=== PATIENT | female | born 1940 | race African-American/Black ===

== ENCOUNTER 2016-05-28 11:45 | Inpatient (IN) | payer OTHER ==
[~2016-05-28] VITALS: Ht 167.6 cm; Wt 80.1 kg
[2016-05-28] MEDS ORDERED: ONDANSETRON 4 MG INJ IV STA (15:39)
[2016-05-28] MEDS ORDERED: VANCOMYCIN 1 GM (PMX) 250 ML IVPB STA (15:39)
[2016-05-28] MEDS ORDERED: AZTREONAM 1 GM/NS (PMX) 50 ML IVPB STA (15:39)
[2016-05-28] MEDS ORDERED: SODIUM CHLORIDE 0.9% 1L BAG IV* STA (15:39)
[2016-05-28] MEDS ORDERED: morphine 2 MG INJ IV ONE (16:00)
--- NOTE | 2016-05-28 16:04 | RADRPT ---
PROCEDURE: XR Chest. CLINICAL INDICATION: Cough. Sepsis. Dehydration. TECHNIQUE: Single frontal view. COMPARISON: None. FINDINGS: The lungs are clear. The heart is mildly enlarged. There is no pleural effusion. There is no pneumothorax. IMPRESSION: 1. Mild cardiomegaly. 2. Clear lungs. RPTAT: QQ .Jose G Barraza MD, MD Date Time Electronically viewed and signed by .Jose G Barraza MD, MD on 05/28/2016 16:04 .R/
[2016-05-28 16:25] LABS: HEMATOCRIT 32.8 % (37.0-47.0); HEMOGLOBIN 10.8 g/dl (12.0-16.0); MEAN CORPUSCULAR HEMOGLOBIN 24.5 pg (29.0-33.0); MEAN CORPUSCULAR HGB CONC 32.9 g/dl (32.0-37.0); MEAN CORPUSCULAR VOLUME 74.5 fl (82.0-101.0); MEAN PLATELET VOLUME 9.5 fl (7.4-10.4); PLATELET COUNT 135 10^3/UL (140-440); RED BLOOD COUNT 4.41 10^6/ul (4.20-5.40); RED CELL DISTRIBUTION WIDTH 15.6 % (11.5-14.5)
[2016-05-28] MEDS ORDERED: PRED1TAB2 PO (16:27)
[2016-05-28] MEDS ORDERED: METO-429 PO (16:27)
[2016-05-28] MEDS ORDERED: AMLO1CAP8 PO (16:28)
[2016-05-28] MEDS ORDERED: HYDR12.58 PO (16:29)
[2016-05-28 16:34] LABS: CONDITION 1; INR 0.99; LH ANALYZER COMMENTS 1; PROTIME 13.1 Sec (12.2-14.2)
[2016-05-28 16:35] LABS: PARTIAL THROMBOPLASTIN TIME 24.7 Sec (25.0-35.0)
[2016-05-28 16:37] LABS: ALBUMIN 4.7 g/dl (3.3-4.9)
[2016-05-28 16:38] LABS: CHLORIDE 101 mmol/L (97-110); POTASSIUM 3.6 mmol/L (3.5-5.1); SODIUM 144 mmol/L (135-144)
[2016-05-28 16:40] LABS: ANION GAP 23 (8-16); ASPARTATE AMINO TRANSFERASE 54 IU/L (15-46); BILIRUBIN,INDIRECT 0.4 mg/dl (0-1.1); BILIRUBIN,TOTAL 0.4 mg/dl (0.2-1.3); CARBON DIOXIDE 24 mmol/L (21-31)
[2016-05-28 16:41] LABS: ALANINE AMINOTRANSFERASE 34 IU/L (13-69); ALKALINE PHOSPHATASE 56 IU/L (42-121); BLOOD UREA NITROGEN 28 mg/dl (7-20); CALCIUM 9.8 mg/dl (8.4-10.2); GLUCOSE 135 mg/dl (70-220); TOTAL PROTEIN 8.3 g/dl (6.1-8.1)
[2016-05-28 17:00] LABS: TROPONIN-I < 0.010 ng/ml (0.00-0.12)
[2016-05-28] MEDS ORDERED: SOD CHLORIDE 0.9% 1,000 ML IV SCH (17:54)
[2016-05-28] MEDS ORDERED: DOCUSATE SODIUM 100 MG CAP PO PRN (18:00)
[2016-05-28] MEDS ORDERED: LORAZEPAM 2 MG INJ IV PRN (18:00)
[2016-05-28] MEDS ORDERED: ALBUTEROL/IPRATROPIUM (NEB) 3 ML AMP HHN PRN (18:00)
[2016-05-28] MEDS ORDERED: NACL 0.9% 3 ML SYG IV SCH (18:00)
[2016-05-28] MEDS ORDERED: morphine 2 MG INJ IV PRN (18:00)
[2016-05-28] MEDS ORDERED: NA PHOSPHATE/BIPHOS 133 ML ENEMA PR PRN (18:00)
[2016-05-28] MEDS ORDERED: MAGNESIUM HYDROXIDE 30ML CUP PO PRN (18:00)
[2016-05-28] MEDS ORDERED: ONDANSETRON 4 MG INJ IV PRN ×2 (18:00)
[2016-05-28] MEDS ORDERED: HYDROCODONE/APAP (5/325) TAB PO PRN (18:00)
[2016-05-28] MEDS ORDERED: hydrALAzine 20 MG INJ IV PRN (18:00)
[2016-05-28] MEDS ORDERED: NITROGLYCERIN (SL) 0.4 MG TAB SL PRN (18:00)
[2016-05-28] MEDS ORDERED: ACETAMINOPHEN 325 MG TAB PO PRN ×2 (18:00)
[2016-05-28 18:10] LABS: LYMPHOCYTES # 0.5 10^3/ul (0.8-2.9); MONOCYTE # 0.5 10^3/ul (0.3-0.9); NEUTROPHIL # 7.5 10^3/ul (1.6-7.5)
--- NOTE | 2016-05-28 18:22 | ERA ---
ER Documentation Chief Complaint Date/Time DATE: 05/28/16 TIME: 18:19 Chief Complaint dizziness, cold symptoms x 05/24/16 HPI Patient is a 75-year-old female with borderline diabetes and hypertension who feels sick. She says "I thought I had the flu". She then started with diarrhea today. Her symptoms started on May 24. She has a sore throat. She denies cough. She denies urinary symptoms but says that she has had urinary issues in the past. She has had a fever 2 days ago. She was sent to the ER by her doctor that she saw in the office today. He said that she was dehydrated and that she would need fluids and admission. Upon review of old medical records this is the patient's first visit to the emergency department. ROS All systems reviewed and are negative except as per history of present illness. Medications Home Meds Reported Medications Hydrochlorothiazide* (Hydrochlorothiazide*) 12.5 Mg Tablet, 12.5 MG PO DAILY, # 30 TAB 05/28/16 Amlodipine Besylate/Benazepril (Amlodipine-Benazepril 5-10 mg) 1 Each Capsule, 1 EACH PO DAILY, CAP 05/28/16 Prednisone* (Prednisone*) 1 Mg Tablet, 3 MG PO DAILY, TAB 05/28/16 Metoprolol Tartrate* (Lopressor*) 50 Mg Tab, 50 MG PO DAILY, #60 TAB 05/28/16 Allergies Allergies: Coded Allergies: Penicillins (Verified Allergy, Unknown, RASH, 05/28/16) Sulfa (Sulfonamide Antibiotics) (Verified Allergy, Unknown, RASH, 05/28/16) erythromycin base (Verified Allergy, Unknown, RASH, 05/28/16) PMhx/Soc Medical and Surgical Hx: Unable to obtain Hx Alcohol Use: Yes Hx Substance Use: No Hx Tobacco Use: No Smoking Status: Never smoker FmHx Family History: diabetes Physical Exam Vitals Vital Signs Date Time Temp Pulse Resp B/P Pulse Ox O2 Delivery O2 Flow Rate FiO2 05/28/16 18:23 97.7 68 20 111/49 100 05/28/16 11:55 97.7 90 20 93/50 100 Physical Exam Const: Mild distress Head: Atraumatic Eyes: Normal Conjunctiva ENT: Normal External Ears, Nose and Mouth. Neck: Full range of motion..~ No meningismus. Resp: Clear to auscultation bilaterally Cardio: Regular rate and rhythm, no murmurs Abd: Soft, diffuse tenderness to palpation without rebound or guarding Skin: No petechiae or rashes Back: No midline or flank tenderness Ext: No cyanosis, or edema Neur: Awake and alert Psych: Normal Mood and Affect Result Diagram: 05/28/16 1611 05/28/16 1611 Results 24 hrs Laboratory Tests Test 05/28/16 16:11 05/28/16 17:39 Activated Partial Thromboplast Time 24.7Sec Alanine Aminotransferase (ALT/SGPT) 34IU/L Albumin 4.7g/dl Albumin/Globulin Ratio 1.30 Alkaline Phosphatase 56IU/L Anion Gap 23 Aspartate Amino Transf (AST/SGOT) 54IU/L Band Neutrophils % 3.0% Blood Morphology Comment Blood Urea Nitrogen 28mg/dl Calcium Level 9.8mg/dl Carbon Dioxide Level 24mmol/L Chloride Level 101mmol/L Creatinine 2.90mg/dl Direct Bilirubin 0.00mg/dl Globulin 3.60g/dl Glucose Level 135mg/dl Hematocrit 32.8% Hemoglobin 10.8g/dl INR International Normalized Ratio 0.99 Indirect Bilirubin 0.4mg/dl Lactic Acid Level 4.0mmol/L 2.6mmol/L Lymphocytes # 0.510^3/ul Lymphocytes % 5.0% Mean Corpuscular Hemoglobin 24.5pg Mean Corpuscular Hemoglobin Concent 32.9g/dl Mean Corpuscular Volume 74.5fl Mean Platelet Volume 9.5fl Monocytes # 0.510^3/ul Monocytes % 6.0% Neutrophils # 7.510^3/ul Neutrophils % 83.0% Platelet Count 11695^3/UL Potassium Level 3.6mmol/L Prothrombin Time 13.1Sec Prothrombin Time Ratio 1.0 Reactive Lymphocytes % 3.0% Red Blood Count 4.4110^6/ul Red Cell Distribution Width 15.6% Sodium Level 144mmol/L Total Bilirubin 0.4mg/dl Total Protein 8.3g/dl Troponin I < 0.010ng/ml White Blood Count 9.010^3/ul Current Medications Medications (Trade) Dose Ordered Sig/Miguel Route PRN Reason Start Time Stop Time Status Last Admin Dose Admin Sodium Chloride 2390 ml 2,390 ml BOLUS OVER 2 HOURS STAT IV* 05/28/16 15:39 05/28/16 15:41 DC 05/28/16 16:22 Vancomycin HCl 250 ml @ 125 mls/hr ONCE STAT IVPB 05/28/16 15:39 05/28/16 17:38 DC 05/28/16 17:59 Aztreonam (Azactam 1gm/NS (Pmx)) 50 ml @ 100 mls/hr ONCE STAT IVPB 05/28/16 15:39 05/28/16 16:08 DC 05/28/16 17:28 Morphine Sulfate (morphine) 2 mg ONCE ONCE IV 05/28/16 16:00 05/28/16 16:01 DC 05/28/16 16:22 Ondansetron HCl (Zofran Inj) 4 mg ONCE STAT IV 05/28/16 15:39 05/28/16 15:41 DC 05/28/16 16:22 Ondansetron HCl (Zofran Inj) 4 mg BRIDGE ORDER PRN IV NAUSEA AND/OR VOMITING 05/28/16 18:00 05/28/16 18:20 DC Acetaminophen (Tylenol Tab) 650 mg ER BRIDGE PRN PO MILD PAIN/FEVER 05/28/16 18:00 05/28/16 18:20 DC IV Flush (NS 3 ml) 3 ml PER PROTOCOL IV 05/28/16 18:00 Ondansetron HCl (Zofran Inj) 4 mg Q6H PRN IV NAUSEA AND/OR VOMITING 05/28/16 18:00 Acetaminophen (Tylenol Tab) 650 mg Q6H PRN PO PAIN LEVEL 1-3 OR FEVER 05/28/16 18:00 Acetaminophen/ Hydrocodone Bitart ([place] (5/325)) 1 tab Q6H PRN PO MODERATE PAIN LEVEL 4-6 05/28/16 18:00 Morphine Sulfate (morphine) 2 mg Q4H PRN IV SEVERE PAIN LEVEL 7-10 05/28/16 18:00 Docusate Sodium (Colace) 100 mg Q12H PRN PO CONSTIPATION 05/28/16 18:00 Magnesium Hydroxide (Milk Of Mag) 30 ml DAILY PRN PO CONSTIPATION 05/28/16 18:00 Sodium Biphosphate/ Sodium Phosphate (Fleet Enema) 133 ml DAILY PRN [place] CONSTIPATION 05/28/16 18:00 Lorazepam 0.5 mg 0.5 mg Q6H PRN IV ANXIETY 05/28/16 18:00 Sodium Chloride (NS) 1,000 ml @ 100 mls/hr Q10H IV 05/28/16 17:54 Albuterol/ Ipratropium (Duoneb) 3 ml Q4H RESP THERAPY PRN HHN SHORTNESS OF BREATH 05/28/16 18:00 Hydralazine HCl (Apresoline) 10 mg Q6H PRN IV ELEVATED BLOOD PRESSURE 05/28/16 18:00 Nitroglycerin (Nitroglycerin (Sl Tab) 0.4 Mg) 1 tab Q5M PRN SL ANGINA 05/28/16 18:00 Prednisone (Prednisone) 3 mg DAILY PO 05/29/16 09:00 Procedures/MDM EKG read by me: Rate/Rhythm: Regular rate and rhythm at a rate of 74 Intervals: Normal Impression: No evidence of ischemia or arrhythmia Chest x-ray shows no pneumonia per radiology. Admit MDM: Patient's infectious symptoms have not stabilized and the patient is at risk of rapid decompensation. The patient will be admitted for careful hydration, antibiotic therapy, and infectious source control. Severe Sepsis criteria: Infectious source: Unclear at this time End organ damage indicated by: Lactate greater than 2, creatinine greater than 2 Sepsis Management: Time of recognition of sepsis: 16:11 Within 3 hours of recognition: Blood cultures x 2 before broad-spectrum antibiotics: Yes 30 ml/kg NS bolus Completed Initial lactate 4.0 Repeat lactate 2.6 Time of recognition of septic shock: 16:11 Septic Shock Assessment: Any lactic acid > 4.0 yes Persistent hypotension (SBP < 90 or 40 mmHg drop, MAP < 65) despite 30 mL/kg IV fluid bolus No Volume Re-assessment for Septic Shock (post 30 ml/kg bolus): Temp 97.7, BP 111/49, HR 68, RR 20, Pox 100% Heart Regular rate & rhythm Lungs No crackles Skin Warm & dry Cap Refill Less than 2 seconds Peripheral pulses Radially present Persistent Hypotension Treatment: Comfort care No Central line Not Required Vasopressor started Not required I considered further perfusion assessment with CVP measurement, SCVO2, bedside ultrasound volume assessment, passive leg raise, trial of further fluid bolus. And proceeded with 30 ml/kg fluid bolus of NSS, broad spectrum antibiotics, and admission. Accepting Care Team Current data and ongoing care discussed. Admitting Physician: Dr. Cash as the patient has never been here before and the primary doctor does not have admitting privileges Calendering Machine Operator(s): None Outstanding Data: Culture results Critical Care: Critical care time 35 minutes excluding all billable procedures Emergent fluid management while maintaining close respiratory support. Provision of immediate and broad-spectrum antibiotic therapy. Simultaneous assessment for possible sources in order to direct targeted therapy. Consideration for invasive and chemical support to prevent cardiopulmonary collapse. Departure Diagnosis: Primary Impression: Septic shock Additional Impressions: Dizziness Anemia Qualified Code: D64.9 - Anemia, unspecified type Renal failure Condition: ODESSA Bocanegra MD May 28, 2016 18:22
[2016-05-28 21:15] VITALS: TEMP 98.4
[2016-05-28 21:30] VITALS: Ht 167.6 cm; Wt 80.1 kg
[2016-05-28 21:33] VITALS: BP 128/60; RESP 20
[2016-05-29] MEDS: 1/2 NS + KCL 20 MEQ 1,000 ML IV SCH ×2 (01:15→08:49)
[2016-05-29 06:00] LABS: IRON 51 ug/dl (35-150)
[2016-05-29 06:02] LABS: ADD UMIC YES; URINE BILIRUBIN (Dip) NEGATIVE (NEGATIVE); URINE BLOOD (Dip) 2+ (NEGATIVE); URINE COLOR LT. YELLOW (YELLOW); URINE GLUCOSE (Dip) NEGATIVE (NEGATIVE); URINE KETONES (Dip) NEGATIVE (NEGATIVE); URINE LEUKOCYTE ESTERASE (Dip) 1+ (NEGATIVE); URINE NITRITE (Dip) NEGATIVE (NEGATIVE); URINE TOTAL PROTEIN (Dip) NEGATIVE (NEGATIVE); URINE UROBILINOGEN (Dip) 0.2 E.U./dL (0.1-1.0)
[2016-05-29 06:03] LABS: CHOL/HDL RATIO 4.1 RATIO
[2016-05-29 06:10] LABS: TOTAL IRON BINDING CAPACITY 201 ug/dl (241-421)
[2016-05-29 06:13] LABS: HEMATOCRIT 25.4 % (37.0-47.0); HEMOGLOBIN 8.5 g/dl (12.0-16.0); MEAN CORPUSCULAR HEMOGLOBIN 24.8 pg (29.0-33.0); MEAN CORPUSCULAR HGB CONC 33.4 g/dl (32.0-37.0); MEAN CORPUSCULAR VOLUME 74.3 fl (82.0-101.0); MEAN PLATELET VOLUME 9.7 fl (7.4-10.4); PLATELET COUNT 100 10^3/UL (140-440); RED BLOOD COUNT 3.41 10^6/ul (4.20-5.40); RED CELL DISTRIBUTION WIDTH 15.3 % (11.5-14.5); UNCORRECTED WBC 4.8 10^3/ul (4.8-10.8); WHITE BLOOD COUNT 4.8 10^3/ul (4.8-10.8)
[2016-05-29 06:21] LABS: BACTERIA,URINE FEW; MUCUS,URINE OCCASIONAL; SQUAMOUS EPITHELIAL CELL,UR FEW
[2016-05-29 06:31] LABS: CONDITION 1; LH ANALYZER COMMENTS 1
[2016-05-29 06:37] LABS: POTASSIUM 3.9 mmol/L (3.5-5.1)
[2016-05-29 06:40] LABS: CREATININE 2.29 mg/dl (0.44-1.00)
[2016-05-29 06:41] LABS: CALCIUM 8.9 mg/dl (8.4-10.2); MAGNESIUM 2.2 mg/dl (1.7-2.5); PHOSPHORUS 4.6 mg/dl (2.5-4.9)
--- NOTE | 2016-05-29 07:12 | HP ---
DATE OF ADMISSION: 05/28/2016 TIME: 11:15 p.m. CHIEF COMPLAINT: Dehydration. HISTORY OF PRESENT ILLNESS: The patient is a 75-year-old female with a history of fibromyalgia rheu matica and hypertension as well as borderline diabetes. The patient does follow up with a rheumatol ogist and plumber helper for her polymyalgia rheumatica. The patient apparently also has some degree of CKD. The patient was told to come to the ED after being told that she is severely dehydrated. Sh reina does state that she has been feeling sick for the past week. She states that she has intermittent fevers, malaise, some abdominal pain and pain in her throat. She denies any cough. She denies any nausea, vomiting, and states that she had no diarrhea over the past week, but did have diarrhea tod ay. In the ED, the patient's lactic acid was notably elevated. She had no signs of an acute. Infe ction at this time she has no acute complaints and states that she was better. PAST MEDICAL HISTORY: Polymyalgia rheumatica, hypertension, CKD and prediabetes. PAST SURGICAL HISTORY: , possible cholecystectomy. HOME MEDICATIONS: 1. Diltiazem. 2. Metoprolol. 3. Norvasc. 4. Benazepril. 5. Prednisone 3 mg daily. ALLERGIES: 1. PENICILLIN. 2. SULFA. 3. ERYTHROMYCIN. FAMILY HISTORY: Noncontributory. SOCIAL HISTORY: Denies any alcohol, tobacco, or drug abuse. REVIEW OF SYSTEMS: A 12-point review of systems negative except for that as in HPI. PHYSICAL EXAMINATION: VITAL SIGNS: Temperature is 98.4, pulse 68, respiratory rate is 20, blood pressure 120/60, saturati on 99% on room air. GENERAL: No acute distress, alert and oriented. HEENT: Normocephalic, atraumatic. LUNGS: Clear to auscultation. CARDIOVASCULAR: Regular rate and rhythm. ABDOMEN: Nondistended, nontender, soft. EXTREMITIES: No clubbing, cyanosis, or edema. LABORATORIES: White count 7.0, hemoglobin 10.8, MCV 74.5, platelets at 135. Chemistries: Sodium i s 144, potassium is 3.6, creatinine is 2.9, BUN is 28, anion gap is 23. Lactic acid was 4.0, now do wn to 1.6. AST 54, INR 0.99. DIAGNOSTICS: Chest x-ray shows mild cardiomegaly, clear lungs. ASSESSMENT AND PLAN: 1. Severe dehydration with lactic acidosis. This may have been secondary to a viral syndrome. She did have diarrhea today; this is already improving. We will continue with IV fluids. The patient denies any cough; hence there is no indication for Tamiflu or influenza screen, plus her symptoms montoya ve been ongoing for the past week and Tamiflu would not be beneficial. 2. Chronic kidney disease. The patient does have chronic kidney disease and follows up with her n ephrologist. Her baseline creatinine is not known. The patient may have an acute component seconda ry to dehydration. We will treat with IV fluids and monitor. 3. History of polymyalgia rheumatica. Continue home prednisone. 4. Hypertension. Continue home amlodipine and benazepril if BP stabilizes. BP on arrival was low s econdary to dehydration, we will resume BP medications the a.m., if once again BP is stable. 6. Borderline diabetes. We will check A1c. 7. Prophylaxis. SCDs. Dictated By: ANGELO VERA MD BS/KENDRA Conf#: [id number] DID#: [id number]
[2016-05-29 07:31] LABS: THYROID STIMULATING HORMONE 1.64 MIU/L (0.465-4.680)
[2016-05-29 07:49] VITALS: BP 122/68; RESP 18
[2016-05-29] MEDS: predniSONE 1 MG TAB PO SCH (08:29)
[2016-05-29] MEDS: BENAZEPRIL 10 MG TAB PO SCH (08:31)
[2016-05-29] MEDS: AMLODIPINE 5 MG TAB PO SCH (08:31)
[2016-05-29 10:42] LABS: LYMPHOCYTES # 1.5 10^3/ul (0.8-2.9); MONOCYTE # 0.2 10^3/ul (0.3-0.9)
--- NOTE | 2016-05-29 11:53 | PN ---
Date/Time of Note Date/Time of Note DATE: 05/29/16 TIME: 11:49 Assessment/Plan VTE Prophylaxis VTE Prophylaxis Intervention: SCD's Lines/Catheters IV Catheter Type (from [facility]): Peripheral IV Assessment/Plan Chief Complaint/Hosp Course Assessment and plan 1. Severe dehydration with lactic acidosis. This may have been secondary to a viral syndrome. diarrhea already improving. We will continue with IV fluids. The patient denies any cough; hence there is no indication for Tamiflu or influenza screen, plus her symptoms have been ongoing for the past week and Tamiflu would not be beneficial. 2. Acute on chronic kidney disease. Continue IV fluids and monitor. Follow -up renal panel in a.m. 3. History of polymyalgia rheumatica. Continue home prednisone. 4. Hypertension. Continue home amlodipine and benazepril if BP stabilizes. BP on arrival was low secondary to dehydration, we will resume BP medications the a.m., if once again BP is stable. 5. Borderline diabetes. We will check A1c. 6. Anemia, follow-up H/H this afternoon, if hemoglobin is less than 8.0 we will transfuse 1 unit of packed red blood cell, this may be dilutional versus GI bleed, follow-up stool guaiac 7. Hypernatremia, start the patient on D5W, follow-up BMP in a.m. 8. Prophylaxis. SCDs. Problems: Subjective 24 Hr Interval Summary Free Text/Dictation Patient denies of any chest pain or shortness of breath Denies of any abdominal discomfort at this time No nausea vomiting or diarrhea No bowel movement 24 hours Exam/Review of Systems Vital Signs Vitals Vital Signs Date Time Temp Pulse Resp B/P Pulse Ox O2 Delivery O2 Flow Rate FiO2 05/29/16 07:49 98.6 64 18 122/68 98 05/28/16 21:15 Room Air Intake and Output 05/28/16 05/28/16 05/29/16 15:00 23:00 07:00 Intake Total 700 ml Balance 700 ml Exam General: The patient is well-developed, Not in acute distress. HEENT: Atraumatic, normocephalic. The pupils are equal and round . Neck: Supple with full range of motion. Chest: Normal expansion of the thorax during inspiration Lungs: Clear to auscultation bilaterally Heart: Normal S1-S2, Regular rhythm and rate. Abdomen: Soft , nontender, nondistended , bowel sounds are present. Extremities: Normal to inspection, no edema no cyanosis Neurologic: Normal mental status,The patient is awake, alert and oriented . Results Result Diagram: 05/29/16 0442 05/29/16 0442 Results 24 hrs Laboratory Tests Test 05/28/16 16:11 05/28/16 17:39 05/28/16 21:50 05/29/16 00:19 Activated Partial Thromboplast Time 24.7 L Alanine Aminotransferase (ALT/SGPT) 34 Albumin 4.7 Albumin/Globulin Ratio 1.30 Alkaline Phosphatase 56 Anion Gap 23 H Aspartate Amino Transf (AST/SGOT) 54 H Band Neutrophils % 3.0 Blood Morphology Comment Blood Urea Nitrogen 28 H Calcium Level 9.8 Carbon Dioxide Level 24 Chloride Level 101 Creatinine 2.90 H Direct Bilirubin 0.00 Free Thyroxine 1.60 Globulin 3.60 H Glucose Level 135 Hematocrit 32.8 L Hemoglobin 10.8 L INR International Normalized Ratio 0.99 Indirect Bilirubin 0.4 Lactic Acid Level 4.0 H 2.6 H 1.6 0.7 Lymphocytes # 0.5 L Lymphocytes % 5.0 L Mean Corpuscular Hemoglobin 24.5 L Mean Corpuscular Hemoglobin Concent 32.9 Mean Corpuscular Volume 74.5 L Mean Platelet Volume 9.5 Monocytes # 0.5 Monocytes % 6.0 Neutrophils # 7.5 Neutrophils % 83.0 H Platelet Count 135 L Potassium Level 3.6 Prothrombin Time 13.1 Prothrombin Time Ratio 1.0 Reactive Lymphocytes % 3.0 Red Blood Count 4.41 Red Cell Distribution Width 15.6 H Sodium Level 144 Total Bilirubin 0.4 Total Protein 8.3 H Troponin I < 0.010 White Blood Count 9.0 Test 05/29/16 02:45 05/29/16 04:42 Urine Bacteria FEW Urine Bilirubin NEGATIVE Urine Clarity CLEAR Urine Color LT. YELLOW Urine Glucose NEGATIVE Urine Hemoglobin 2+ H Urine Hyaline Casts OCCASIONAL Urine Ketones NEGATIVE Urine Leukocyte Esterase 1+ H Urine Microscopic RBC 10-25 Urine Microscopic WBC 5-10 Urine Mucus OCCASIONAL Urine Nitrite NEGATIVE Urine Specific [place] 1.025 Urine Squamous Epithelial Cells FEW Urine Total Protein NEGATIVE Urine Urobilinogen 0.2 E.U./dL Urine pH 5.5 Anion Gap 21 H Blood Morphology Comment Blood Urea Nitrogen 28 H Calcium Level 8.9 Carbon Dioxide Level 22 Chloride Level 111 H Cholesterol Level 150 Cholesterol/HDL Ratio 4.1 Creatinine 2.29 H Glucose Level 94 # HDL Cholesterol 36 Hematocrit 25.4 #L Hemoglobin 8.5 #L Hemoglobin A1c 5.2 Iron Level 51 LDL Cholesterol, Calculated 85 Lactic Acid Level 1.1 Lymphocytes # 1.5 Lymphocytes % 32.0 Magnesium Level 2.2 Mean Corpuscular Hemoglobin 24.8 L Mean Corpuscular Hemoglobin Concent 33.4 Mean Corpuscular Volume 74.3 L Mean Platelet Volume 9.7 Monocytes # 0.2 L Monocytes % 5.0 Neutrophils # 3.0 Neutrophils % 63.0 Percent Iron Saturation 25 Phosphorus Level 4.6 Platelet Count 100 #L Potassium Level 3.9 Red Blood Count 3.41 #L Red Cell Distribution Width 15.3 H Sodium Level 150 H Thyroid Stimulating Hormone (TSH) 1.640 Total Iron Binding Capacity 201 L Triglycerides Level 145 White Blood Count 4.8 # Medications Medications Current Medications Ondansetron HCl (Zofran Inj) 4 mg Q6H PRN IV NAUSEA AND/OR VOMITING; Start 05/28 at 18:00 Acetaminophen (Tylenol Tab) 650 mg Q6H PRN PO PAIN LEVEL 1-3 OR FEVER; Start at 18:00 Acetaminophen/ Hydrocodone Bitart ([place] (5/325)) 1 tab Q6H PRN PO MODERATE PAIN LEVEL 4-6; Start 05/28/16 at 18:00 Morphine Sulfate (morphine) 2 mg Q4H PRN IV SEVERE PAIN LEVEL 7-10; Start at 18:00 Docusate Sodium (Colace) 100 mg Q12H PRN PO CONSTIPATION; Start 05/28/16 at 18: 00 Magnesium Hydroxide (Milk Of Mag) 30 ml DAILY PRN PO CONSTIPATION; Start at 18:00 Sodium Biphosphate/ Sodium Phosphate (Fleet Enema) 133 ml DAILY PRN [place] CONSTIPATION; Start 05/28/16 at 18:00 Lorazepam (Ativan) 0.5 mg Q6H PRN IV ANXIETY; Start 05/28/16 at 18:00 Hydralazine HCl (Apresoline) 10 mg Q6H PRN IV ELEVATED BLOOD PRESSURE; Start at 18:00 Nitroglycerin (Nitroglycerin (Sl Tab) 0.4 Mg) 1 tab Q5M PRN SL ANGINA; Start at 18:00 Prednisone (Prednisone) 3 mg DAILY PO Last administered on 05/29/16 08:29; Admin Dose 3 MG; Start 05/29/16 at 09:00 Amlodipine Besylate (Norvasc) 5 mg DAILY PO Last administered on 05/29/16 08:31 ; Admin Dose 5 MG; Start 05/29/16 at 09:00 Benazepril HCl 10 mg 10 mg DAILY PO Last administered on 05/29/16 08:31; Admin Dose 10 MG; Start 05/29/16 at 09:00 Potassium Chloride/Dextrose (D5W + KCl 20 Meq) 1,000 ml @ 80 mls/hr [id number] IV ; Start 05/29/16 at 12:00 RYNE DODD MD May 29, 2016 11:53
[2016-05-29] MEDS: D5W + KCL 20 MEQ 1,000 ML IV SCH (12:33)
[2016-05-29 14:22] LABS: HEMATOCRIT 26.9 % (37.0-47.0); HEMOGLOBIN 8.8 g/dl (12.0-16.0)
--- NOTE | 2016-05-29 14:49 | CONS ---
Date/Time of Note Date/Time of Note DATE: 05/29/16 TIME: 14:41 Assessment/Plan Assessment/Plan Chief Complaint/Hosp Course Assessment 1. Severe dehydration with lactic acidosis. Viral syndrome vs gastroenteritis 2. Acute on chronic kidney disease. 3. History of polymyalgia rheumatica. 4. iron deficiency anemia, r/o GIB 5. Borderline diabetes. Recommendations: 1. stool for occult blood, C. diff and culture 2. IVF 3. check iron panel 4. if occult blood positive and hgb drops, will d/w patient re EGD for hemostasis. holding off on colonoscopy for now as pt had colonoscopy 6 month ago. Problems: Consultation Date/Type/Reason Admit Date/Time May 28, 2016 at 17:44 Type of Consultation: GI Hx of Present Illness 75-year-old female with a history of fibromyalgia rheumatica and hypertension as well as borderline diabetes who is admitted for dehydration. The patient does follow up with a recruitment manager and ethylbenzene cracking supervisor for her polymyalgia rheumatica. She has been feeling sick for the past week with intermittent fevers, malaise, some abdominal pain and pain in her throat. No cough. She denies any nausea, vomiting, and states that she had no diarrhea over the past week, but did have diarrhea today. No melena, BRBPR, coffee ground emesis or hematemesis. No abdominal pain, dysuria, or skin rashes. Last colonoscopy 6 months ago which removed colon polyp. Never had EGD. All point ROS administered, pertinent positives and negatives in HPI otherwise negative. Past Medical History Polymyalgia rheumatica, pre-diabetes, h/o colon polyps Medical History: hypertension, renal disease Past Surgical History Past Surgical Hx: endoscopy Family History Significant Family History: no pertinent family hx Social History Alcohol Use: none Smoking Status: Former smoker Drug Use: none Exam/Review of Systems Vital Signs Vitals Vital Signs Date Time Temp Pulse Resp B/P Pulse Ox O2 Delivery O2 Flow Rate FiO2 05/29/16 07:49 98.6 64 18 122/68 98 05/28/16 21:15 Room Air Intake and Output 05/28/16 05/28/16 05/29/16 14:59 22:59 06:59 Intake Total 700 ml Balance 700 ml Exam Constitutional: alert, oriented, well developed Psych: nl mood/affect, no complaints Head: atraumatic, normocephalic Eyes: EOMI, nl conjunctiva, nl lids, nl sclera ENMT: mucosa pink and moist, nl external ears & nose, nl lips & teeth, nl nasal mucosa & septum Neck: non-tender, supple Respiratory: clear to auscultation, normal air movement Cardiovascular: nl pulses, regular rate and rhythm Gastrointestinal: bowel sounds, non-tender, soft Musculoskeletal: nl extremities to inspection, nl gait and stance Neurological: nl mental status, nl speech, nl strength Results Result Diagram: 05/29/16 1340 05/29/16 0442 Results 24 hrs Laboratory Tests Test 05/28/16 16:11 05/28/16 17:39 05/28/16 21:50 05/29/16 00:19 Activated Partial Thromboplast Time 24.7 L Alanine Aminotransferase (ALT/SGPT) 34 Albumin 4.7 Albumin/Globulin Ratio 1.30 Alkaline Phosphatase 56 Anion Gap 23 H Aspartate Amino Transf (AST/SGOT) 54 H Band Neutrophils % 3.0 Blood Morphology Comment Blood Urea Nitrogen 28 H Calcium Level 9.8 Carbon Dioxide Level 24 Chloride Level 101 Creatinine 2.90 H Direct Bilirubin 0.00 Free Thyroxine 1.60 Globulin 3.60 H Glucose Level 135 Hematocrit 32.8 L Hemoglobin 10.8 L INR International Normalized Ratio 0.99 Indirect Bilirubin 0.4 Lactic Acid Level 4.0 H 2.6 H 1.6 0.7 Lymphocytes # 0.5 L Lymphocytes % 5.0 L Mean Corpuscular Hemoglobin 24.5 L Mean Corpuscular Hemoglobin Concent 32.9 Mean Corpuscular Volume 74.5 L Mean Platelet Volume 9.5 Monocytes # 0.5 Monocytes % 6.0 Neutrophils # 7.5 Neutrophils % 83.0 H Platelet Count 135 L Potassium Level 3.6 Prothrombin Time 13.1 Prothrombin Time Ratio 1.0 Reactive Lymphocytes % 3.0 Red Blood Count 4.41 Red Cell Distribution Width 15.6 H Sodium Level 144 Total Bilirubin 0.4 Total Protein 8.3 H Troponin I < 0.010 White Blood Count 9.0 Test 05/29/16 02:45 05/29/16 04:42 05/29/16 13:40 Urine Bacteria FEW Urine Bilirubin NEGATIVE Urine Clarity CLEAR Urine Color LT. YELLOW Urine Glucose NEGATIVE Urine Hemoglobin 2+ H Urine Hyaline Casts OCCASIONAL Urine Ketones NEGATIVE Urine Leukocyte Esterase 1+ H Urine Microscopic RBC 10-25 Urine Microscopic WBC 5-10 Urine Mucus OCCASIONAL Urine Nitrite NEGATIVE Urine Specific [place] 1.025 Urine Squamous Epithelial Cells FEW Urine Total Protein NEGATIVE Urine Urobilinogen 0.2 E.U./dL Urine pH 5.5 Anion Gap 21 H Blood Morphology Comment Blood Urea Nitrogen 28 H Calcium Level 8.9 Carbon Dioxide Level 22 Chloride Level 111 H Cholesterol Level 150 Cholesterol/HDL Ratio 4.1 Creatinine 2.29 H Glucose Level 94 # HDL Cholesterol 36 Hematocrit 25.4 #L 26.9 L Hemoglobin 8.5 #L 8.8 L Hemoglobin A1c 5.2 Iron Level 51 LDL Cholesterol, Calculated 85 Lactic Acid Level 1.1 Lymphocytes # 1.5 Lymphocytes % 32.0 Magnesium Level 2.2 Mean Corpuscular Hemoglobin 24.8 L Mean Corpuscular Hemoglobin Concent 33.4 Mean Corpuscular Volume 74.3 L Mean Platelet Volume 9.7 Monocytes # 0.2 L Monocytes % 5.0 Neutrophils # 3.0 Neutrophils % 63.0 Percent Iron Saturation 25 Phosphorus Level 4.6 Platelet Count 100 #L Potassium Level 3.9 Red Blood Count 3.41 #L Red Cell Distribution Width 15.3 H Sodium Level 150 H Thyroid Stimulating Hormone (TSH) 1.640 Total Iron Binding Capacity 201 L Triglycerides Level 145 White Blood Count 4.8 # Medications Medications Current Medications Ondansetron HCl (Zofran Inj) 4 mg Q6H PRN IV NAUSEA AND/OR VOMITING; Start 05/28 at 18:00 Acetaminophen (Tylenol Tab) 650 mg Q6H PRN PO PAIN LEVEL 1-3 OR FEVER; Start at 18:00 Acetaminophen/ Hydrocodone Bitart ([place] (5/325)) 1 tab Q6H PRN PO MODERATE PAIN LEVEL 4-6; Start 05/28/16 at 18:00 Morphine Sulfate (morphine) 2 mg Q4H PRN IV SEVERE PAIN LEVEL 7-10; Start at 18:00 Docusate Sodium (Colace) 100 mg Q12H PRN PO CONSTIPATION; Start 05/28/16 at 18: 00 Magnesium Hydroxide (Milk Of Mag) 30 ml DAILY PRN PO CONSTIPATION; Start at 18:00 Sodium Biphosphate/ Sodium Phosphate (Fleet Enema) 133 ml DAILY PRN [place] CONSTIPATION; Start 05/28/16 at 18:00 Lorazepam (Ativan) 0.5 mg Q6H PRN IV ANXIETY; Start 05/28/16 at 18:00 Hydralazine HCl (Apresoline) 10 mg Q6H PRN IV ELEVATED BLOOD PRESSURE; Start at 18:00 Nitroglycerin (Nitroglycerin (Sl Tab) 0.4 Mg) 1 tab Q5M PRN SL ANGINA; Start at 18:00 Prednisone (Prednisone) 3 mg DAILY PO Last administered on 05/29/16 08:29; Admin Dose 3 MG; Start 05/29/16 at 09:00 Amlodipine Besylate (Norvasc) 5 mg DAILY PO Last administered on 05/29/16 08:31 ; Admin Dose 5 MG; Start 05/29/16 at 09:00 Benazepril HCl 10 mg 10 mg DAILY PO Last administered on 05/29/16 08:31; Admin Dose 10 MG; Start 05/29/16 at 09:00 Potassium Chloride/Dextrose (D5W + KCl 20 Meq) 1,000 ml @ 80 mls/hr [id number] IV Last administered on 05/29/16 12:33; Admin Dose 80 MLS/HR; Start 05/29/16 at 12 :00 Pantoprazole (Protonix Tab) 40 mg DAILY@06 PO ; Start 05/30/16 at 06:00 DUNIA QUINTEROS MD May 29, 2016 14:48
[2016-05-29] MEDS: PANTOPRAZOLE (EC) 40 MG TAB PO SCH (18:04)
[2016-05-29 19:58] VITALS: BP 125/58; RESP 20
[2016-05-30] MEDS: D5W + KCL 20 MEQ 1,000 ML IV SCH ×2 (00:49→13:07)
[2016-05-30] MEDS ORDERED: PANTOPRAZOLE (EC) 40 MG TAB PO SCH (06:00)
[2016-05-30] MEDS: PANTOPRAZOLE (EC) 40 MG TAB PO SCH ×2 (06:42→17:35)
[2016-05-30 07:51] VITALS: BP_SYST 114; BP_SYST 119; BP_DIAS 56; BP_DIAS 80; RESP 16; RESP 18
[2016-05-30] MEDS: BENAZEPRIL 10 MG TAB PO SCH (08:30)
[2016-05-30] MEDS: AMLODIPINE 5 MG TAB PO SCH (08:31)
[2016-05-30] MEDS: predniSONE 1 MG TAB PO SCH (08:31)
--- NOTE | 2016-05-30 09:11 | RADRPT ---
Echocardiogram Report Patient Name: SHANE ROJAS Gender: Female Date: 1940 Study Date: 29-May-2016 Drawer Waxer: TOMAS Location: E Ref. Physician: AMANDA MELGAR Quality: Adequate Procedures: Transthoracic echocardiogram with complete 2D, M-Mode, and Doppler examination. Indications: Weakness. 2D/M Mode Doppler Measurement Value Normal Ranges Measurement Value Normal Ranges AoR Diam MM 3.2 cm AV Peak Victorino 1.4 m/sec ACS MM 2.2 cm AV Peak PG 8.0 mmHg LVIDd 2D 4.7 3.5 - 5.6 cm LVOT Peak Victor[place] 1.0 m/sec LVIDs 2D 2.8 2.1 - 4.1 cm LVOT Peak PG 3.6 mmHg LVPWd 2D 1.3 0.6 - 1.1 cm MV E Peak Victorino 0.6 m/sec IVSd 2D 1.3 0.6 - 1.1 cm MV A Peak Victorino 0.7 m/sec EDV 2D 103.7 cm3 MV E/A 0.9 ESV 2D 22.3 cm3 MV Decel Time 230 msec LA Dimen 2D 3.6 2.3 - 4.0 cm MV Decel Mclean 3 MV E/A 0.9 TR Peak Victorino 2.5 m/sec TR Peak PG 24.3 mmHg PV Peak Victorino 1.0 m/sec PV Peak PG 4.0 mmHg RVSP 27.3 mmHg Findings Left Ventricle: Normal left ventricular systolic function. Normal left ventricular cavity size. Mild concentric left ventricular hypertrophy. Ejection fraction is visually estimated at 60 %. Tissue Doppler/Mitral Doppler indices are consistent with impaired relaxation (Stage I diastolic dysfunction). Right Ventricle: Normal right ventricular size. Normal right ventricular systolic function. Left Atrium: There is moderate enlargement of left atrium. Right Atrium: There is mild enlargement of right atrium. Atrial Septum: Normal atrial septum. Mitral Valve: Normal appearance and function of the mitral valve with trace physiologic regurgitation. Aortic Valve: No significant aortic stenosis or insufficiency. Normal trileaflet aortic valve structure. Tricuspid Valve: Normal appearance of the tricuspid valve. Estimated peak PA systolic pressure 27 mmHg. There is trace tricuspid regurgitation. Pulmonic Valve: Normal pulmonic valve appearance. There is trace pulmonic regurgitation. Pericardium: Normal pericardium with no significant pericardial effusion. Aorta: Normal aortic root. IVC: Normal size and normal respiratory collapse consistent with normal right atrial pressure. Pulmonary Artery: Normal pulmonary artery size. Conclusions 1.Normal left ventricular systolic function. Normal left ventricular cavity size. Mild concentric left ventricular hypertrophy. Ejection fraction is visually estimated at 60 %. Tissue Doppler/Mitral Doppler indices are consistent with impaired relaxation (Stage I diastolic dysfunction). 2.No significant valvular stenosis or regurgitation seen. 3.Estimated peak PA systolic pressure 27 mmHg based on RA pressure of 3 mmHg. Electronically Signed By: Dick Metzger 30-May-2016 09:10: Patient Name: SHANE ROJAS Study Date: 29-May-2016 [id number]
[2016-05-30 09:34] LABS: HEMATOCRIT 27.8 % (37.0-47.0); HEMOGLOBIN 9.1 g/dl (12.0-16.0); MEAN CORPUSCULAR HEMOGLOBIN 24.4 pg (29.0-33.0); MEAN CORPUSCULAR HGB CONC 32.8 g/dl (32.0-37.0); MEAN CORPUSCULAR VOLUME 74.6 fl (82.0-101.0); MEAN PLATELET VOLUME 9.4 fl (7.4-10.4); PLATELET COUNT 119 10^3/UL (140-440); RED BLOOD COUNT 3.74 10^6/ul (4.20-5.40); RED CELL DISTRIBUTION WIDTH 15.6 % (11.5-14.5); UNCORRECTED WBC 4.9 10^3/ul (4.8-10.8); WHITE BLOOD COUNT 4.9 10^3/ul (4.8-10.8)
[2016-05-30 09:38] LABS: CONDITION 1; LH ANALYZER COMMENTS 1
[2016-05-30 09:41] LABS: POTASSIUM 3.8 mmol/L (3.5-5.1)
[2016-05-30 09:44] LABS: CREATININE 1.46 mg/dl (0.44-1.00)
[2016-05-30 10:42] LABS: LYMPHOCYTES # 1.6 10^3/ul (0.8-2.9); MONOCYTE # 0.1 10^3/ul (0.3-0.9); NEUTROPHIL # 3.1 10^3/ul (1.6-7.5); PLATELET ESTIMATE PLT APPEAR DECREASED
--- NOTE | 2016-05-30 13:19 | CONS ---
Date/Time of Note Date/Time of Note DATE: 05/30/16 TIME: 13:17 Assessment/Plan Assessment/Plan Chief Complaint/Hosp Course Assessment 1. Severe dehydration with lactic acidosis. Viral syndrome vs gastroenteritis 2. Acute on chronic kidney disease. 3. History of polymyalgia rheumatica. 4. iron deficiency anemia: found to have occult positive stool 5. Borderline diabetes. Recommendations: 1. EGD and colonoscopy for occult positive stool 2. IVF 3. continue PPI Problems: Consultation Date/Type/Reason Admit Date/Time May 28, 2016 at 17:44 Initial Consult Date Type of Consultation: GI 24 HR Interval Summary Free Text/Dictation no abdominal pain, occult positive stool Constitutional: improved Exam/Review of Systems Vital Signs Vitals Vital Signs Date Time Temp Pulse Resp B/P Pulse Ox O2 Delivery O2 Flow Rate FiO2 05/30/16 07:51 98.5 81 16 114/56 98 05/28/16 21:15 Room Air Intake and Output 05/29/16 05/29/16 05/30/16 15:00 23:00 07:00 Intake Total 600 ml 1390 ml 1130 ml Output Total 600 ml Balance 600 ml 1390 ml 530 ml Exam Constitutional: alert, oriented, well developed Psych: nl mood/affect, no complaints Head: atraumatic, normocephalic Eyes: EOMI, nl conjunctiva, nl lids, nl sclera ENMT: mucosa pink and moist, nl external ears & nose, nl lips & teeth, nl nasal mucosa & septum Neck: non-tender, supple Respiratory: clear to auscultation, normal air movement Cardiovascular: nl pulses, regular rate and rhythm Gastrointestinal: bowel sounds, non-tender, soft Results Result Diagram: 05/30/16 0846 05/30/16 0846 Results 24 hrs Laboratory Tests Test 05/29/16 13:40 05/29/16 14:25 05/30/16 08:46 Hematocrit 26.9 L 27.8 L Hemoglobin 8.8 L 9.1 L Stool Occult Blood POSITIVE Anion Gap 14 # Band Neutrophils % 2.0 Blood Morphology Comment Blood Urea Nitrogen 16 # Calcium Level 9.0 Carbon Dioxide Level 25 Chloride Level 107 Creatinine 1.46 H Glucose Level 115 Lymphocytes # 1.6 Lymphocytes % 32.0 Mean Corpuscular Hemoglobin 24.4 L Mean Corpuscular Hemoglobin Concent 32.8 Mean Corpuscular Volume 74.6 L Mean Platelet Volume 9.4 Monocytes # 0.1 L Monocytes % 3.0 Neutrophils # 3.1 Neutrophils % 63.0 Platelet Count 119 L Platelet Estimate PLT APPEAR DECREASED Potassium Level 3.8 Red Blood Count 3.74 L Red Cell Distribution Width 15.6 H Sodium Level 142 White Blood Count 4.9 Medications Medications Current Medications Ondansetron HCl (Zofran Inj) 4 mg Q6H PRN IV NAUSEA AND/OR VOMITING; Start 05/28 at 18:00 Acetaminophen (Tylenol Tab) 650 mg Q6H PRN PO PAIN LEVEL 1-3 OR FEVER; Start at 18:00 Acetaminophen/ Hydrocodone Bitart ([place] (5/325)) 1 tab Q6H PRN PO MODERATE PAIN LEVEL 4-6; Start 05/28/16 at 18:00 Morphine Sulfate (morphine) 2 mg Q4H PRN IV SEVERE PAIN LEVEL 7-10; Start at 18:00 Docusate Sodium (Colace) 100 mg Q12H PRN PO CONSTIPATION; Start 05/28/16 at 18: 00 Magnesium Hydroxide (Milk Of Mag) 30 ml DAILY PRN PO CONSTIPATION; Start at 18:00 Sodium Biphosphate/ Sodium Phosphate (Fleet Enema) 133 ml DAILY PRN [place] CONSTIPATION; Start 05/28/16 at 18:00 Lorazepam (Ativan) 0.5 mg Q6H PRN IV ANXIETY; Start 05/28/16 at 18:00 Hydralazine HCl (Apresoline) 10 mg Q6H PRN IV ELEVATED BLOOD PRESSURE; Start at 18:00 Nitroglycerin (Nitroglycerin (Sl Tab) 0.4 Mg) 1 tab Q5M PRN SL ANGINA; Start at 18:00 Prednisone (Prednisone) 3 mg DAILY PO Last administered on 05/30/16 08:31; Admin Dose 3 MG; Start 05/29/16 at 09:00 Amlodipine Besylate (Norvasc) 5 mg DAILY PO Last administered on 05/30/16 08:31 ; Admin Dose 5 MG; Start 05/29/16 at 09:00 Benazepril HCl 10 mg 10 mg DAILY PO Last administered on 05/30/16 08:30; Admin Dose 10 MG; Start 05/29/16 at 09:00 Potassium Chloride/Dextrose (D5W + KCl 20 Meq) 1,000 ml @ 80 mls/hr [id number] IV Last administered on 05/30/16 13:07; Admin Dose 80 MLS/HR; Start 05/29/16 at 12 :00 DUNIA QUINTEROS MD May 30, 2016 13:19
[2016-05-30] MEDS ORDERED: BISACODYL (EC) 5 MG TAB PO ONE (13:30)
[2016-05-30] MEDS: METOCLOPRAMIDE 10 MG INJ IV SCH ×2 (13:47→17:53)
--- NOTE | 2016-05-30 14:01 | PN ---
Date/Time of Note Date/Time of Note DATE: 05/30/16 TIME: 13:57 Assessment/Plan VTE Prophylaxis VTE Prophylaxis Intervention: SCD's Lines/Catheters IV [facility] Type [facility]from [facility] Peripheral IV Urinary Cath still in place: No Assessment/Plan Chief Complaint/Hosp Course Assessment and plan 1. Severe dehydration with lactic acidosis. This may have been secondary to diarrhea and GI bleed . diarrhea already improving. We will continue with IV fluids. Improving 2. Acute on chronic kidney disease. Improving, Continue IV fluids and monitor. Follow-up renal panel in a.m. 3. History of polymyalgia rheumatica. Continue home prednisone. 4. Hypertension. Continue home amlodipine and benazepril if BP stabilizes. BP on arrival was low secondary to dehydration, we will resume BP medications the a.m., if once again BP is stable. 5. Borderline diabetes. In 2 to monitor 6. Anemia, follow-up H/H this afternoon, if hemoglobin is less than 8.0 we will transfuse 1 unit of packed red blood cell, this may be dilutional versus GI bleed, stool guaiac positive 7. GI bleed. Brass Molder Helper has been consulted, patient has been scheduled for upper endoscopy and colonoscopy tomorrow [id number] 8. Hypernatremia, improved, transition IV fluid to D5 1/2 NS 9. Prophylaxis. SCDs. We will continue monitor patient closely for recommendation management treatment as per clinical course Problems: Subjective 24 Hr Interval Summary Free Text/Dictation Patient denies of any chest pain or shortness of breath Denies of having any abdominal discomfort Exam/Review of Systems Vital Signs Vitals Vital Signs Date Time Temp Pulse Resp B/P Pulse Ox O2 Delivery O2 Flow Rate FiO2 05/30/16 07:51 98.5 81 16 114/56 98 05/28/16 21:15 Room Air Intake and Output 05/29/16 05/29/16 05/30/16 15:00 23:00 07:00 Intake Total 600 ml 1390 ml 1130 ml Output Total 600 ml Balance 600 ml 1390 ml 530 ml Exam General: The patient is well-developed, Not in acute distress. HEENT: Atraumatic, normocephalic. The pupils are equal and round . Neck: Supple with full range of motion. Chest: Normal expansion of the thorax during inspiration Lungs: Clear to auscultation bilaterally Heart: Normal S1-S2, Regular rhythm and rate. Abdomen: Soft , nontender, nondistended , bowel sounds are present. Extremities: Normal to inspection, no edema no cyanosis Neurologic: Normal mental status,The patient is awake, alert and oriented . Results Result Diagram: 05/30/16 0846 05/30/16 0846 Results 24 hrs Laboratory Tests Test 05/29/16 14:25 05/30/16 08:46 Stool Occult Blood POSITIVE Anion Gap 14 # Band Neutrophils % 2.0 Blood Morphology Comment Blood Urea Nitrogen 16 # Calcium Level 9.0 Carbon Dioxide Level 25 Chloride Level 107 Creatinine 1.46 H Glucose Level 115 Hematocrit 27.8 L Hemoglobin 9.1 L Lymphocytes # 1.6 Lymphocytes % 32.0 Mean Corpuscular Hemoglobin 24.4 L Mean Corpuscular Hemoglobin Concent 32.8 Mean Corpuscular Volume 74.6 L Mean Platelet Volume 9.4 Monocytes # 0.1 L Monocytes % 3.0 Neutrophils # 3.1 Neutrophils % 63.0 Platelet Count 119 L Platelet Estimate PLT APPEAR DECREASED Potassium Level 3.8 Red Blood Count 3.74 L Red Cell Distribution Width 15.6 H Sodium Level 142 White Blood Count 4.9 Medications Medications Current Medications Ondansetron HCl (Zofran Inj) 4 mg Q6H PRN IV NAUSEA AND/OR VOMITING; Start 05/28 at 18:00 Acetaminophen (Tylenol Tab) 650 mg Q6H PRN PO PAIN LEVEL 1-3 OR FEVER; Start at 18:00 Acetaminophen/ Hydrocodone Bitart ([place] (5/325)) 1 tab Q6H PRN PO MODERATE PAIN LEVEL 4-6; Start 05/28/16 at 18:00 Morphine Sulfate (morphine) 2 mg Q4H PRN IV SEVERE PAIN LEVEL 7-10; Start at 18:00 Docusate Sodium (Colace) 100 mg Q12H PRN PO CONSTIPATION; Start 05/28/16 at 18: 00; Stop 05/30/16 at 21:00 Magnesium Hydroxide (Milk Of Mag) 30 ml DAILY PRN PO CONSTIPATION; Start at 18:00; Stop 05/30/16 at 20:00 Sodium Biphosphate/ Sodium Phosphate (Fleet Enema) 133 ml DAILY PRN [place] CONSTIPATION; Start 05/28/16 at 18:00 Lorazepam (Ativan) 0.5 mg Q6H PRN IV ANXIETY; Start 05/28/16 at 18:00 Hydralazine HCl (Apresoline) 10 mg Q6H PRN IV ELEVATED BLOOD PRESSURE; Start at 18:00 Nitroglycerin (Nitroglycerin (Sl Tab) 0.4 Mg) 1 tab Q5M PRN SL ANGINA; Start at 18:00 Prednisone (Prednisone) 3 mg DAILY PO Last administered on 05/30/16 08:31; Admin Dose 3 MG; Start 05/29/16 at 09:00 Amlodipine Besylate (Norvasc) 5 mg DAILY PO Last administered on 05/30/16 08:31 ; Admin Dose 5 MG; Start 05/29/16 at 09:00 Benazepril HCl 10 mg 10 mg DAILY PO Last administered on 05/30/16 08:30; Admin Dose 10 MG; Start 05/29/16 at 09:00 Potassium Chloride/Dextrose (D5W + KCl 20 Meq) 1,000 ml @ 80 mls/hr [id number] IV Last administered on 05/30/16 13:07; Admin Dose 80 MLS/HR; Start 05/29/16 at 12 :00 Docusate Sodium (Colace) 200 mg HS PO ; Start 05/30/16 at 21:00 Magnesium Hydroxide (Milk Of Mag) 30 ml ONCE PO ; Start 05/30/16 at 20:00; Stop 05/30/16 at 20:01 Magnesium Citrate (Citroma) 300 ml ONCE ONCE PO ; Start 05/30/16 at 16:00; Stop 05/30/16 at 16:01 Metoclopramide HCl (Reglan) 10 mg Q6 IV Last administered on 05/30/16 13:47; Admin Dose 10 MG; Start 05/30/16 at 13:30; Stop 05/30/16 at 18:01 RYNE DODD MD May 30, 2016 14:00
[2016-05-30] MEDS: D5W-0.45 NACL + KCL 20 MEQ 1,000 ML IV SCH (15:03)
[2016-05-30] MEDS ORDERED: MAGNESIUM CITRATE 300 ML BTL PO ONE (16:00)
[2016-05-30] MEDS ORDERED: POLYETHYLENE GLYCOL 3350 119 GM POWDER PO ONE (18:00)
[2016-05-30 19:55] VITALS: BP 135/63; RESP 18
[2016-05-30] MEDS ORDERED: MAGNESIUM HYDROXIDE 30ML CUP PO SCH (20:00)
[2016-05-30] MEDS: CIPROFLOXACIN 200 MG/D5W IVPB 100 ML IVPB SCH (20:38)
[2016-05-30] MEDS ORDERED: DOCUSATE SODIUM 100 MG CAP PO SCH (21:00)
[2016-05-31] VITALS (10 sets, daily range): BP systolic 121–177; BP diastolic 51–72; PULSE 60–73; RESP 18–33
[2016-05-31] MEDS: D5W-0.45 NACL + KCL 20 MEQ 1,000 ML IV SCH ×2 (06:26→16:55)
[2016-05-31] MEDS: PANTOPRAZOLE (EC) 40 MG TAB PO SCH (07:30)
[2016-05-31 07:40] LABS: INR 1.08; PT RATIO 1.1
[2016-05-31 07:41] LABS: PARTIAL THROMBOPLASTIN TIME 28.3 Sec (25.0-35.0)
[2016-05-31] MEDS: BENAZEPRIL 10 MG TAB PO SCH (08:23)
[2016-05-31] MEDS: AMLODIPINE 5 MG TAB PO SCH (08:24)
[2016-05-31] MEDS: predniSONE 1 MG TAB PO SCH (08:24)
[2016-05-31] MEDS: CIPROFLOXACIN 200 MG/D5W IVPB 100 ML IVPB SCH (09:25)
[2016-05-31 10:03] LABS: HEMATOCRIT 26.9 % (37.0-47.0); HEMOGLOBIN 8.9 g/dl (12.0-16.0); MEAN CORPUSCULAR HEMOGLOBIN 24.3 pg (29.0-33.0); MEAN CORPUSCULAR HGB CONC 33.1 g/dl (32.0-37.0); MEAN CORPUSCULAR VOLUME 73.4 fl (82.0-101.0); MEAN PLATELET VOLUME 8.7 fl (7.4-10.4); PLATELET COUNT 124 10^3/UL (140-440); RED BLOOD COUNT 3.66 10^6/ul (4.20-5.40); RED CELL DISTRIBUTION WIDTH 15.2 % (11.5-14.5); UNCORRECTED WBC 4.4 10^3/ul (4.8-10.8); WHITE BLOOD COUNT 4.4 10^3/ul (4.8-10.8)
[2016-05-31 10:06] LABS: CONDITION 1; LH ANALYZER COMMENTS 1
[2016-05-31 10:13] LABS: POTASSIUM 3.7 mmol/L (3.5-5.1)
[2016-05-31 10:15] LABS: CREATININE 1.24 mg/dl (0.44-1.00)
[2016-05-31 10:16] LABS: CALCIUM 8.8 mg/dl (8.4-10.2)
[2016-05-31] MEDS ORDERED: PROPOFOL 40 ML ONE (11:46)
[2016-05-31 11:59] LABS: EOSINOPHILS # 0.1 10^3/ul (0.0-0.5); LYMPHOCYTES # 1.3 10^3/ul (0.8-2.9); MONOCYTE # 0.7 10^3/ul (0.3-0.9); NEUTROPHIL # 2.1 10^3/ul (1.6-7.5)
[2016-05-31] MEDS ORDERED: METOCLOPRAMIDE 10 MG INJ IV PRN (12:00)
[2016-05-31] MEDS ORDERED: FENTAnyl 50 MCG/ML VIAL IV PRN (12:00)
[2016-05-31] MEDS ORDERED: ONDANSETRON 4 MG INJ IV PRN (12:00)
[2016-05-31] MEDS ORDERED: MEPERIDINE 25 MG INJ IV PRN (12:00)
[2016-05-31] MEDS ORDERED: DIPHENHYDRAMINE 50 MG INJ IV PRN (12:00)
[2016-05-31] MEDS ORDERED: MIDAZOLAM 1 MG/ML 2 ML INJ IV PRN (12:00)
--- NOTE | 2016-05-31 15:27 | PDOCDIS ---
Discharge Instructions CONDITION Patient Condition: Good HOME CARE INSTRUCTIONS: Special Diet: renal ACTIVITY: Activity Restrictions: No Restrictions FOLLOW UP/APPOINTMENTS Appointments Follow up with primary care physician in 1 week Follow up with customer field representative in 6-8 weeks Follow-up with hub associate in 3-4 weeks RYNE DODD MD May 31, 2016 15:27
[2016-05-31] MEDS ORDERED: PANT40TA4 PO (15:28)
[2016-05-31] MEDS ORDERED: CIPR-193 PO (15:28)
--- NOTE | 2016-06-01 01:33 | GILP ---
DATE OF PROCEDURE: INDICATION: A 75-year-old female undergoing this procedure for a positive stool guaiac and anemia. The purpose is to evaluate upper GI tract and lower GI tract and find out the cause of GI blood los s and anemia. The risks of the procedure, related and unrelated complications, anesthetic risks, al ternatives discussed and informed consent was obtained. DESCRIPTION OF PROCEDURE: The patient was brought to the GI lab, sedated by Dr. Wen. After obtaini ng sedation, scope was passed with much ease into esophagus, which was grossly within normal limits. Z line was at 38 cm. The Z line was regular. Stomach mucosa revealed gastritis. Four or 5 rando m biopsies obtained to rule out H. pylori infection. Duodenal mucosa revealed duodenitis with multi ple petechial spots throughout the bulb. Second part, including ampulla, was within normal limits. Retroversion done, no growth was seen in the fundal area. Scope was straightened out and removed w ith good patient tolerance. IMPRESSION: 1. Normal esophagus. 2. Z line regular at 38 cm. 3. No varicose vein identified. 4. Gastritis. 5. Duodenitis with multiple petechial spots. 6. Normal ampulla. Plan is to review histopathology for H. pylori infection. In the interim, just continue PPI or H2 b locker. COLONOSCOPY REPORT: She was turned around. Digital examination was normal. Scope was passed with much ease into rectum. There was a solid stool in the rectum, pushed it aside. Scope was advanced gently through sigmoid, descending, transverse colon all the way into cecum. Appendiceal orifice an d IC valve identified. When we were on the right side of the colon, we had to change the position f rom the left side to supine for a smooth intubation of the cecum. The rest of the colon appeared no rmal. Clarity was good on the right side and all the way up to the sigmoid colon. The cleanliness was good. There was some nonspecific colitis in the transverse colon, about 1 cm in diameter. Rest of the colon was normal. Hemorrhoids identified. There was stool in the rectum. No retroflexion was done in the rectum because of the stool. IMPRESSION: 1. Hemorrhoids. 2. Normal all the way into the cecum. 3. Clarity and cleanliness was good except in the rectum there was some stool. 3. There was a nonspecific isolated colitis about 1 cm in diameter in the transverse colon. This c ould be even an arteriovenous malformation. PLAN: Stay on high fiber diet. The patient needs to be further worked up for the anemia. If she h as got a true iron deficiency anemia, then she will need a capsule endoscopy as an outpatient. Dictated By: JUNE RUIZ/KENDRA Conf#: [id number] DID#: [id number] CC: AMANDA MELGAR; JUNE JOSEPH MD; Primary Care;*EndCC*
--- NOTE | 2016-06-01 06:34 | DS ---
DATE OF ADMISSION: 05/28/2016 DATE OF DISCHARGE: 05/31/2016 LOG GETTER: Dr. Abdirashid James PROCEDURES: 1. Endoscopy. 2. Colonoscopy with the finding of gastritis, duodenitis. DISCHARGE DIAGNOSES: 1. Severe dehydration with lactic acidosis, status post IV fluid, resolved. 2. Acute on chronic renal insufficiency, improved. 3. History of polymyalgia rheumatica. Continue prednisone. 4. Hypertension. Continue amlodipine, benazepril. 5. Anemia. Hemoglobin and hematocrit has been stable. 6. Duodenitis and gastritis. The patient has been placed on proton pump inhibitor. 7. Hypernatremia, likely secondary to dehydration, improved. VITAL SIGNS: Temperature 98, pulse 65, respirations 20, blood pressure 142/65, oxygen saturation 98 %. ALLERGIES: WBC 4.4, hemoglobin 8.9, hematocrit 26.9, platelets 124. Sodium 145, potassium 3.7, chl oride 108, bicarbonate 25, BUN 8, creatinine 1.24, glucose 100, hemoglobin A1c 5.2, total iron 51, T IBC 201. Iron saturation 25. HOSPITAL COURSE: This is a pleasant 75-year-old female with past medical history of fibromyalgia rh eumatica, hypertension who has been followed by supervisor mapping and tread builder as outpatient. The patient has been complaining of having nausea with diarrhea for the past several days and was presen eh to [facility] secondary to having generalized weakness. Patient was found to have severe dehydration with a BUN of 28, creatinine of 2.90. Her lactic acid was found to be eleva eh at 4.0. The patient also was found to be hypernatremic, sodium 150. The patient was started on aggressive IV fluid. The patient's guaiac was found to be positive. Psychiatric Social Worker was consul eh. The patient was placed on PPI. After hydration the patient's sodium started to improve at 142 . Her creatinine has been improving significantly to 1.24. The glucose is stable. The patient was found to have anemia of chronic disease with total iron of 51, TIBC 201, iron saturation 25. Her l ipid panel was normal with triglyceride 145, total cholesterol 150, LDL of 85, HDL of 36, TSH 1.64. Her lactic acid is normal at 0.7. The patient was seen and evaluated by manager spanish. After signing a consent, was taken to GI lab for endoscopy and colonoscopy where she was found to have ga stritis and duodenitis. The patient's urine culture was found to be positive for gram-positive orga nisms less than 10,000. This may be contamination, although secondary for her gastritis and duodeni tis, the patient was stable, was placed on PPI and ciprofloxacin. Her condition has been improving significantly. At this time, the patient denies having any chest pain, shortness of breath, nausea, vomiting, diarrhea. The patient has been started on a full liquid diet and has been tolerating wit hout any difficulty. At this time, patient is medically stable to be discharged home with a close f ollowup with primary care physician, tread builder, manager spanish as outpatient. Dictated By: RYNE HAWTHORNE/NTS Conf#: [id number] DID#: [id number] CC: [facility];*EndCC*
== END 2016-05-31 17:41 | disposition home or self-care (01) | DRG 641 ==
LOC: E/R 11:45 → PP2 17:44
PROVIDERS: ADMIT Hospitalist; ATTEND Hospitalist
PROC: 30233N1 Transfusion of Nonautologous Red Blood Cells into Peripheral Vein, Percutaneous Approach (ICD-10-PCS; principal; 2016-05-29)
DX: E86.0 Dehydration (principal); K52.9 Noninfective gastroenteritis and colitis, unspecified; E87.0 Hyperosmolality and hypernatremia; N17.9 Acute kidney failure, unspecified; E87.2 Acidosis; I12.9 Hypertensive chronic kidney disease with stage 1 through stage 4 chronic kidney disease, or unspecified chronic kidney disease; N18.9 Chronic kidney disease, unspecified; M35.3 Polymyalgia rheumatica; R73.03 Prediabetes; B34.9 Viral infection, unspecified; D50.9 Iron deficiency anemia, unspecified; K29.70 Gastritis, unspecified, without bleeding; K29.80 Duodenitis without bleeding; Z88.0 Allergy status to penicillin; Z88.2 Allergy status to sulfonamides
CPT/HCPCS: 71010; 80048; 80053; 80061; 81001; 81003; 82270; 83036; 83540; 83605; 83735; 84100; 84439; 84443; 84484; 85014; 85018; 85025; 85610; 85730; 86850; 86900; 86901; 86920; 87040; 87045; 87075; 87086; 88305; 88312; 93005; 93306; 97162; J0744; J2270; J2405; J2765; J3370; J3480; J7030; J7512